=== PATIENT | male | born 1960 | race Caucasian/White ===

== ENCOUNTER 2019-06-22 12:49 | Emergency (ER) | payer OTHER ==
[2019-06-22 13:22] LABS: Absolute Lymphocytes (CBC) 1.4 K/uL (0.7-4.9); Basophils % 0.3 % (0-1.3); Hematocrit 41.4 % (39.6-49.0); Lymphocytes % 17.4 % (15.3-44.8); MPV 7.9 fL (7.6-11.3); Protime INR 0.92; RBC Red Blood Cell Count 4.43 M/uL (4.33-5.43)
[2019-06-22] MEDS ORDERED: ONDANSETRON 4 MG/2 ML VIAL ONE (13:35)
[2019-06-22] MEDS ORDERED: MORPHINE 4 MG/ML SYR ONE (13:35)
[2019-06-22 13:37] LABS: ALT/SGPT 29 U/L (12-78); AST/SGOT 25 U/L (15-37); Albumin 3.9 g/dL (3.4-5.0); Alkaline Phosphatase 55 U/L (45-117); BUN Blood Urea Nitrogen 12 mg/dL (7-18); Bicarbonate 25 mmol/L (21-32); Bilirubin Direct 0.2 mg/dL (0-0.2); Bilirubin Total 0.5 mg/dL (0.2-1.0); Glucose Level 120 mg/dL (74-106); NT PRO-BNP 45 pg/mL (<125); Potassium 3.5 mmol/L (3.5-5.1); Protein, Total 7.1 g/dL (6.4-8.2); Sodium Level 129 mmol/L (136-145); Troponin (Emerg Dept Use Only) < 0.02 ng/mL (0.0-0.045)
--- NOTE | 2019-06-22 13:53 | RAD REPORT ---
EXAM DESCRIPTION: RAD - Chest Single View - 06/22/2019 1:44 pm CLINICAL HISTORY: CHEST PAIN Chest pain. COMPARISON: CHEST SINGLE VIEW dated 09/24/2011 FINDINGS: Portable technique limits examination quality. The lungs are grossly clear. The heart is normal in size. No displaced fractures. IMPRESSION: No acute intrathoracic process suspected.
[2019-06-22 14:52] LABS: Barbiturates NEGATIVE (NEGATIVE); Benzodiazepines NEGATIVE (NEGATIVE); Cocaine NEGATIVE (NEGATIVE); METHAMPHETAM NEGATIVE (NEGATIVE); Methadone NEGATIVE (NEGATIVE); Opiates NEGATIVE (NEGATIVE); Phencyclidine NEGATIVE (NEGATIVE); THC Cannibis NEGATIVE (NEGATIVE)
[2019-06-22] MEDS ORDERED: LORazepam 2 MG/ML VIAL ONE (14:55)
--- NOTE | 2019-06-22 17:48 | EDPHYS ---
Physician Documentation [facility] Name: Tobin Cerda Age: 59 yrs Sex: Male : 1960 Arrival Date: 06/22/2019 Time: 12:50 Bed 5 Private MD: Anthony Wang ED Physician Sai Kan HPI: 06/22 21:42 This 59 yrs old Male presents to ER via Ambulatory with complaints of Chest pm1 Tightness, High Blood Pressure. 21:42 The patient or guardian reports chest pain that is located primarily in the mid-sternal pm1 area. Onset: this morning. The pain does not radiate. Associated signs and symptoms: Pertinent positives: palpitations, Anxiety, Pertinent negatives: abdominal pain, cough, dizziness, headache, nausea, shortness of breath, vomiting. Duration: The patient or guardian reports multiple episodes. Modifying factors: The symptoms are alleviated by nothing. Severity of pain: in the emergency department the pain is unchanged. similar to prior episodes of anxiety. The patient has not recently seen a physician. Historical: - Allergies: 12:55 No Known Allergies; aa5 - Home Meds: 12:55 hydrochlorothiazide 12.5 mg Oral tab [Active]; Ativan Oral at bedtime [Active]; aa5 Lovastatin Oral [Active]; Bystolic oral oral [Active]; Skelaxin Oral [Active]; - PMHx: 12:55 Hypertension; Hyperlipidemia; aa5 - PSHx: 12:55 Fatty tissue removed from right breast.; aa5 - Immunization history:: Flu vaccine status is unknown. - Social history:: Smoking status: Patient/guardian denies using tobacco. - Ebola Screening: : No symptoms or risks identified at this time. ROS: 13:39 Constitutional: Negative for fever, chills, and weight loss, Eyes: Negative for injury, pm1 pain, redness, and discharge, ENT: Negative for injury, pain, and discharge, Neck: Negative for injury, pain, and swelling. 13:39 Respiratory: Negative for shortness of breath, cough, wheezing, and pleuritic chest pain, Abdomen/GI: Negative for abdominal pain, nausea, vomiting, diarrhea, and constipation, Back: Negative for injury and pain, MS/Extremity: Negative for injury and deformity, Skin: Negative for injury, rash, and discoloration, Neuro: Negative for headache, weakness, numbness, tingling, and seizure. 13:39 Cardiovascular: Positive for chest pain, palpitations, Negative for edema. 13:39 Psych: Positive for anxiety. Exam: 13:39 Constitutional: This is a well developed, well nourished patient who is awake, alert, pm1 and in no acute distress. Head/Face: Normocephalic, atraumatic. Neck: Trachea midline, no thyromegaly or masses palpated, and no cervical lymphadenopathy. Supple, full range of motion without nuchal rigidity, or vertebral point tenderness. No Meningismus. Chest/axilla: Normal chest wall appearance and motion. Nontender with no deformity. No lesions are appreciated. Cardiovascular: Regular rate and rhythm with a normal S1 and S2. No gallops, murmurs, or rubs. Normal PMI, no JVD. No pulse deficits. Respiratory: Lungs have equal breath sounds bilaterally, clear to auscultation and percussion. No rales, rhonchi or wheezes noted. No increased work of breathing, no retractions or nasal flaring. Abdomen/GI: Soft, non-tender, with normal bowel sounds. No distension or tympany. No guarding or rebound. No evidence of tenderness throughout. Back: No spinal tenderness. No costovertebral tenderness. Full range of motion. Skin: Warm, dry with normal turgor. Normal color with no rashes, no lesions, and no evidence of cellulitis. MS/ Extremity: Pulses equal, no cyanosis. Neurovascular intact. Full, normal range of motion. Neuro: Awake and alert, GCS 15, oriented to person, place, time, and situation. Cranial nerves II-XII grossly intact. Motor strength 5/5 in all extremities. Sensory grossly intact. Cerebellar exam normal. Normal gait. 13:39 Psych: Behavior/mood is anxious, Affect is animated. Vital Signs: 12:55 BP 177 / 83; Pulse 86; Resp 18 S; Temp 97.7(TE); Pulse Ox 100% on R/A; Weight 80.74 kg aa5 (R); Height 5 ft. 10 in. (177.80 cm) (R); Pain 8/10; 14:00 BP 165 / 83; Pulse 73; Resp 17 S; Pulse Ox 98% on R/A; jl7 14:45 BP 145 / 78; Pulse 73; Resp 16 S; Pulse Ox 96% on R/A; jl7 15:53 BP 151 / 82; Pulse 73; Resp 14 S; Pulse Ox 97% on R/A; jl7 17:50 BP 145 / 73; Pulse 72; Resp 16 S; Temp 97.8(TE); Pulse Ox 98% on R/A; Pain 0/10; aa5 12:55 Body Mass Index 25.54 (80.74 kg, 177.80 cm) aa5 MDM: 12:58 Patient medically screened. pm1 17:46 Data reviewed: vital signs. Data interpreted: Pulse oximetry: on room air is 97 %. pm1 Interpretation: normal. Counseling: I had a detailed discussion with the patient and/or guardian regarding: the historical points, exam findings, and any diagnostic results supporting the discharge/admit diagnosis, lab results, radiology results, the need for outpatient follow up, to return to the emergency department if symptoms worsen or persist or if there are any questions or concerns that arise at home. 17:46 DARIEN Risk Score: TOTAL SCORE = 0. ED course: Patient with two negative troponin greater pm1 than 4 hour apart. Patient reports symptoms similar to prior anxiety reaction and resolved with Ativan given in the ER. 06/22 12:59 Order name: Basic Metabolic Panel; Complete Time: 13:46 pm1 06/22 12:59 Order name: CBC with Diff; Complete Time: 13:46 pm1 06/22 12:59 Order name: LFT's; Complete Time: 13:46 pm1 06/22 12:59 Order name: Magnesium; Complete Time: 13:46 pm1 06/22 12:59 Order name: NT PRO-BNP; Complete Time: 13:46 pm1 06/22 12:59 Order name: PT-INR; Complete Time: 13:46 pm1 06/22 12:59 Order name: Troponin (emerg Dept Use Only); Complete Time: 13:46 pm1 06/22 12:59 Order name: XRAY Chest (1 view); Complete Time: 13:59 pm1 06/22 13:05 Order name: UDS; Complete Time: 14:59 pm1 06/22 14:06 Order name: D-Dimer; Complete Time: 14:32 pm1 06/22 15:31 Order name: Troponin (emerg Dept Use Only): Draw at 1710; Complete Time: 17:45 pm1 06/22 12:59 Order name: EKG; Complete Time: 13:00 pm1 06/22 12:59 Order name: Cardiac monitoring; Complete Time: 13:45 pm1 06/22 12:59 Order name: EKG - Nurse/Tech; Complete Time: 13:45 pm1 06/22 12:59 Order name: IV Saline Lock; Complete Time: 13:45 pm1 06/22 12:59 Order name: Labs collected and sent; Complete Time: 13:45 pm1 06/22 12:59 Order name: O2 Per Protocol; Complete Time: 13:45 pm1 06/22 12:59 Order name: O2 Sat Monitoring; Complete Time: 13:45 pm1 06/22 13:06 Order name: Urine Dipstick-Ancillary (obtain specimen); Complete Time: 14:18 pm1 EC:05 Rate is 86 beats/min. Rhythm is regular. QRS Tina is Normal. No Q waves. T waves are pm1 Normal. No ST changes noted. Clinical impression: Normal ECG. Administered Medications: 13:43 Drug: Zofran 4 mg Route: IVP; Site: right antecubital; aa5 14:20 Follow up: Response: No adverse reaction aa5 13:45 Drug: morphine 4 mg Route: IVP; Site: right antecubital; aa5 14:20 Follow up: Response: No adverse reaction aa5 14:36 Not Given (Physician Discretion): Bystolic 10 mg PO once aa5 14:56 Drug: Ativan 1 mg Route: IVP; Site: right antecubital; aa5 16:15 Follow up: Response: No adverse reaction aa5 Disposition: 18:32 Co-signature as Attending Physician, Sai Kan MD I agree with the assessment and kdr plan of care. Disposition: 06/22/19 17:47 Discharged to Home. Impression: Chest pain, unspecified, Essential (primary) hypertension. - Condition is Stable. - Discharge Instructions: Nonspecific Chest Pain, Hypertension, How to Take Your Blood Pressure, Type-mu-Ppyb, DASH Eating Plan, Managing Your Hypertension. - Medication Reconciliation Form, Thank You Letter, Antibiotic Education, Prescription Opioid Use form. - Follow up: Emergency Department; When: As needed; Reason: Worsening of condition. Follow up: Private Physician; When: 2 - 3 days; Reason: Recheck today's complaints, Continuance of care, Re-evaluation by your physician. - Problem is new. - Symptoms have improved. Signatures: Dispatcher [employer] EDSai Swift MD MD kdr Evgeny Hilario, MILLING MACHINE OPERATOR MILLING MACHINE OPERATOR em Shelby Silver, RN RN aa5 Praveen Earl, WAGON DRIVER WAGON DRIVER pm1 Corrections: (The following items were deleted from the chart) 18:19 17:47 06/22/2019 17:47 Discharged to Home. Impression: Chest pain, unspecifiedEssential em (primary) hypertension. Condition is Stable. Forms are Medication Reconciliation Form, Thank You Letter, Antibiotic Education, Prescription Opioid Use. Follow up: Emergency Department; When: As needed; Reason: Worsening of condition. Follow up: Private Physician; When: 2 - 3 days; Reason: Recheck today's complaints, Continuance of care, Re-evaluation by your physician. Problem is new. Symptoms have improved. pm1
--- NOTE | 2019-06-22 17:48 | ER ---
[facility] Name: Tobin Cerda Age: 59 yrs Sex: Male : 1960 Arrival Date: 06/22/2019 Time: 12:50 Bed 5 Private MD: Anthony Wang Diagnosis: Essential (primary) hypertension;Chest pain, unspecified Presentation: 06/22 12:52 Presenting complaint: Patient states: intermittent chest pressure and palpitations that aa5 began at 1100. Pt states "my neighbor took my blood pressure and said it was 190/80 and then I started feeling better and my blood pressure was down to 150/80 and then I went home and took my hydrochlorothiazide, started feeling bad again and my blood pressure was 175/85". Pt denies cough or recent illness. Transition of care: patient was not received from another setting of care. Onset of symptoms was June 22, 2019. Risk Assessment: Do you want to hurt yourself or someone else? Patient reports no desire to harm self or others. Initial Sepsis Screen: Does the patient meet any 2 criteria? No. Patient's initial sepsis screen is negative. Does the patient have a suspected source of infection? No. Patient's initial sepsis screen is negative. Care prior to arrival: None. 12:52 Acuity: NICOLE 3 aa5 12:52 Method Of Arrival: Ambulatory aa5 Historical: - Allergies: 12:55 No Known Allergies; aa5 - Home Meds: 12:55 hydrochlorothiazide 12.5 mg Oral tab [Active]; Ativan Oral at bedtime [Active]; aa5 Lovastatin Oral [Active]; Bystolic oral oral [Active]; Skelaxin Oral [Active]; - PMHx: 12:55 Hypertension; Hyperlipidemia; aa5 - PSHx: 12:55 Fatty tissue removed from right breast.; aa5 - Immunization history:: Flu vaccine status is unknown. - Social history:: Smoking status: Patient/guardian denies using tobacco. - Ebola Screening: : No symptoms or risks identified at this time. Screenin:53 Abuse screen: Denies threats or abuse. Nutritional screening: No deficits noted. aa5 Tuberculosis screening: No symptoms or risk factors identified. Fall Risk None identified. Assessment: 12:53 General: Appears uncomfortable, Behavior is calm, cooperative. Pain: Complains of pain aa5 in mid-sternal area Pain does not radiate. Pain currently is 8 out of 10 on a pain scale. Quality of pain is described as pressure, Pain began at 1100 Is intermittent. Neuro: Level of Consciousness is awake, alert, obeys commands, Oriented to person, place, time, situation. Cardiovascular: Heart tones S1 S2 present Rhythm is regular. Respiratory: Airway is patent Respiratory effort is even, unlabored, Respiratory pattern is regular, symmetrical, Breath sounds are clear bilaterally. Denies cough, shortness of breath. GI: Abdomen is round non-distended, Bowel sounds present X 4 quads. Abd is soft and non tender X 4 quads. : No signs and/or symptoms were reported regarding the genitourinary system. EENT: No signs and/or symptoms were reported regarding the EENT system. Derm: Skin is pink, warm \\T\\ dry. Musculoskeletal: Range of motion: intact in all extremities. 13:45 Reassessment: Patient is alert, oriented x 3, equal unlabored respirations, skin aa5 warm/dry/pink. 13:45 Cardiovascular: Rhythm is sinus rhythm. aa5 14:20 Reassessment: Patient is alert, oriented x 3, equal unlabored respirations, skin aa5 warm/dry/pink. Patient states feeling better. 14:20 Pain: Pain currently is 4 out of 10 on a pain scale. aa5 14:20 Cardiovascular: Rhythm is sinus rhythm. aa5 17:13 Reassessment: Repeat troponin drawn and sent to lab by cable television technician. . aa5 17:13 Reassessment: Patient is alert, oriented x 3, equal unlabored respirations, skin aa5 warm/dry/pink. Patient states feeling better. Patient states symptoms have improved. 18:05 Reassessment: Patient is alert, oriented x 3, equal unlabored respirations, skin aa5 warm/dry/pink. Patient denies pain at this time. Vital Signs: 12:55 BP 177 / 83; Pulse 86; Resp 18 S; Temp 97.7(TE); Pulse Ox 100% on R/A; Weight 80.74 kg aa5 (R); Height 5 ft. 10 in. (177.80 cm) (R); Pain 8/10; 14:00 BP 165 / 83; Pulse 73; Resp 17 S; Pulse Ox 98% on R/A; jl7 14:45 BP 145 / 78; Pulse 73; Resp 16 S; Pulse Ox 96% on R/A; jl7 15:53 BP 151 / 82; Pulse 73; Resp 14 S; Pulse Ox 97% on R/A; jl7 17:50 BP 145 / 73; Pulse 72; Resp 16 S; Temp 97.8(TE); Pulse Ox 98% on R/A; Pain 0/10; aa5 12:55 Body Mass Index 25.54 (80.74 kg, 177.80 cm) aa5 ED Course: 12:50 Patient arrived in ED. mr 12:51 Anthony Wang MD is Private Physician. mr 12:52 Shelby Silver, AMELIA is Primary Nurse. aa5 12:52 Arm band placed on Patient placed in an exam room, on a stretcher. aa5 12:52 Patient has correct armband on for positive identification. Placed in gown. Bed in low aa5 position. Call light in reach. Side rails up X2. monitoring analyst on. Pulse ox on. NIBP on. 12:58 Praveen Earl, DARRIUS is PHCP. pm1 12:58 Sai Kan MD is Attending Physician. pm1 13:01 EKG done, by ED staff, reviewed by Praveen Earl NP. aa5 13:06 Triage completed. aa5 13:09 Initial lab(s) drawn, by me, sent to lab. Inserted saline lock: 22 gauge in right kj1 antecubital area, using aseptic technique. Blood collected. 13:43 XRAY Chest (1 view) In Process Unspecified. EDMS 14:19 UDS Sent. kj1 17:10 Repeat lab(s) drawn. by me, sent to lab. jp3 18:05 No provider procedures requiring assistance completed. IV discontinued, intact, aa5 bleeding controlled, No redness/swelling at site. Pressure dressing applied. Patient maintains SpO2 saturation greater than 95% on room air. Administered Medications: 13:43 Drug: Zofran 4 mg Route: IVP; Site: right antecubital; aa5 14:20 Follow up: Response: No adverse reaction aa5 13:45 Drug: morphine 4 mg Route: IVP; Site: right antecubital; aa5 14:20 Follow up: Response: No adverse reaction aa5 14:36 Not Given (Physician Discretion): Bystolic 10 mg PO once aa5 14:56 Drug: Ativan 1 mg Route: IVP; Site: right antecubital; aa5 16:15 Follow up: Response: No adverse reaction aa5 Outcome: 17:46 Discharge ordered by . pm1 18:05 Discharged to home ambulatory, with family. aa5 18:05 Condition: improved 18:05 Discharge instructions given to patient, Instructed on discharge instructions, follow up and referral plans. Demonstrated understanding of instructions, follow-up care. 18:07 Patient left the ED. aa5 Signatures: Dispatcher [employer] YOONWA YefriRach mr Hilario, Evgeny, SALES REPRESENTATIVE GRAPHIC ART SALES REPRESENTATIVE GRAPHIC ART em Shelby Silver, RN RN aa5 Praveen Earl, ASSAULT AMPHIBIOUS VEHICLE OFFICER ASSAULT AMPHIBIOUS VEHICLE OFFICER pm1 Taya Deras RN RN jl7 Chris Chu jp3 Nichole Correa kj1 Corrections: (The following items were deleted from the chart) 13:01 13:00 Arm band placed on Patient placed in an exam room, on a stretcher, aa5 aa5 19:32 18:19 Patient left the ED. em aa5
[2019-06-22 18:55] VITALS: TEMP 97.7
[2019-06-22 18:59] VITALS: BP 151/82; O2SAT 97
--- NOTE | 2019-06-23 11:59 | EKG ---
Test Date: 2019-06-22 Test Time: 13:00:22 Basic Acoustic Analyst: LEE ANN MEASUREMENT RESULTS: Intervals: Rate: 86 UT: 152 QRSD: 90 QT: 362 QTc: 433 [place]: P: 63 UT: 152 QRS: 38 T: 56 INTERPRETIVE STATEMENTS: Normal sinus rhythm Normal ECG Compared to ECG 09/24/2011 05:02:06 No significant changes Electronically Signed On 06-23-19 11:57:04 INSPECTOR ALUMINUM BOAT by Sal Prakash
== END 2019-06-22 18:19 | disposition home or self-care (01) ==
LOC: ER 12:49
DX: R07.9 Chest pain, unspecified (principal); I10 Essential (primary) hypertension; E78.5 Hyperlipidemia, unspecified
CPT/HCPCS: 93005; 85025; 80048; 36415; 83735; 85610; 85379; 80076; 80307 ×8; 84484 ×2; 83880; 71045; 96375; 96374; 99285; J2405